=== PATIENT | female | born 1935 | race Caucasian/White ===

== ENCOUNTER 2019-05-25 13:19 | Outpatient (RCR) | payer MEDICARE, OTHER, SELFPAY | END 2019-06-14 00:01 | LOC: WOUND 13:19 | PROVIDERS: Visit Provider Nurse Practitioner Family | DX: S90.421A Blister (nonthermal), right great toe, initial encounter (principal); X58.XXXA Exposure to other specified factors, initial encounter | CPT/HCPCS: G0463; L4397 ==